=== PATIENT | female | born 2000 | race Asian ===

== ENCOUNTER 2018-05-11 20:16 | Emergency (ER) | payer BC ==
[2018-05-11 20:59] VITALS: BP 105/71
--- NOTE | 2018-05-11 22:36 | UC ---
Respiratory Complaint HPI - HPI Summary HPI Summary: PATIENT HAS HAD URI/BRONCHITIS SYMPTOMS INCLUDING COUGH AND CONGESTION FOR ABOUT 2 WEEKS. REPORTS HER SYMPTOMS ARE MUCH IMPROVED BUT THE COUGH HAS PERSISTED. FOR ABOUT 1 WEEK SHE HAS HAD LEFT LATERAL "LUNG PAIN". WORSE WITH DEEP BREATHS, MOVEMENT, COUGH. NO FEVER, NAUSEA/VOMITING. NO HEMOPTYSIS. NO SOB OR CP. - History of Current Complaint Chief Complaint: UCRespiratory Stated Complaint: CHEST CONGESTION Time Seen by Provider: 05/11/18 21:20 Hx Obtained From: Patient Hx Last Menstrual Period: 03/29/18 Onset/Duration: Gradual Onset, Still Present Timing: Constant Severity Initially: Moderate Severity Currently: Moderate Pain Intensity: 0 Pain Scale Used: 0-10 Numeric Character: Cough: Nonproductive Aggravating Factors: Deep Breaths, Other - COUGHING, MOVING Alleviating Factors: Nothing Associated Signs And Symptoms: Positive: URI. Negative: Dyspnea, Fever, Wheezing, Nasal Congestion - Allergies/Home Medications Allergies/Adverse Reactions: Allergies Allergy/AdvReac Type Severity Reaction Status Date / Time No Known Allergies Allergy Verified 05/11/18 20:59 Home Medications: Home Medications Guaifenesin/Pseudoephedrne HCl [Mucinex D ER Tablet] 1 each PO DAILY 05/11/18 [ History Confirmed 05/11/18] PMH/Surg Hx/FS Hx/Imm Hx Previously Healthy: Yes - Surgical History Surgical History: None - Family History Known Family History: Positive: Non-Contributory - Social History Alcohol Use: Occasionally Substance Use Type: None Smoking Status (MU): Never Smoked Tobacco Review of Systems All Other Systems Reviewed And Are Negative: Yes Constitutional: Positive: Negative Respiratory: Positive: Cough, Other - PLEURITIC PAIN Cardiovascular: Positive: Negative Gastrointestinal: Positive: Negative Physical Exam Triage Information Reviewed: Yes Appearance: Well-Appearing, No Pain Distress, Well-Nourished Vital Signs: Initial Vital Signs Temp 98.8 F 05/11/18 20:52 Pulse 81 05/11/18 20:52 Resp 16 05/11/18 20:52 BP 105/71 05/11/18 20:52 Pulse Ox 100 05/11/18 20:52 Vital Signs Reviewed: Yes Eyes: Positive: Conjunctiva Clear ENT: Positive: Hearing grossly normal, Pharynx normal, TMs normal Neck: Positive: Supple, Nontender, No Lymphadenopathy Respiratory Exam: Normal Cardiovascular Exam: Normal Abdomen Description: Positive: Soft Musculoskeletal: Positive: No Edema Neurological: Positive: Alert Psychological: Positive: Age Appropriate Behavior Skin: Negative: Rashes UC Diagnostic Evaluation - Laboratory O2 Sat by Pulse Oximetry: 100 Respiratory Course/Dx - Course Course Of Treatment: CHEST X-RAY UNREMARKABLE ON MY INITIAL INTERPRETATION. OFFICIAL RADIOLOGY READ IS PENDING. PATIENT'S DISCOMFORT IS LIKELY FROM AIRWAY IRRITATION DUE TO HER RECENT ILLNESS. HER RESPIRATORY SYMPTOMS ARE ALREADY IMPROVING SO WILL NOT TREAT WITH ANTIBIOTICS AT THIS TIME. WILL GIVE PREDNISONE TO HELP WITH COUGH AND AIRWAY INFLAMMATION. FOLLOW-UP WITH [facility] IF NEEDED. TO ER IF SYMPTOMS WORSEN. - Differential Dx/Diagnosis Provider Diagnosis: Pleuritic pain, Acute bronchitis Discharge - Sign-Out/Discharge Documenting (check all that apply): Patient Departure All imaging exams completed and their final reports reviewed: No - Discharge Plan Condition: Stable Disposition: HOME Prescriptions: predniSONE TAB* [Deltasone 20 MG TAB*] 40 mg PO DAILY #10 tab Patient Education Materials: Pleurisy (ED), Acute Bronchitis (ED) Referrals: [facility] [Provider Group] - If Needed Additional Instructions: CHEST X-RAY UNREMARKABLE ON MY INITIAL INTERPRETATION. WE WILL CALL YOU TOMORROW IF THE RADIOLOGY READ DIFFERS YOUR SYMPTOMS ARE ALREADY IMPROVING. NO INDICATION FOR ANTIBIOTICS AT THIS TIME. WILL TREAT WITH PREDNISONE TO HELP WITH COUGH AND AIRWAY INFLAMMATION. IBUPROFEN/TYLENOL NEEDED FOR DISCOMFORT. FOLLOW-UP WITH [facility] IF NEEDED. GO TO THE ER WITHOUT FAIL IF YOU DEVELOP WORSENING PAIN, SHORTNESS OF BREATH, FEVER OR ANY OTHER CONCERNING SYMPTOMS. - Billing Disposition and Condition Condition: STABLE Disposition: Home
== END 2018-05-11 22:35 | disposition home or self-care (01) ==
LOC: UCEAST 20:16
DX: J20.9 Acute bronchitis, unspecified (principal); R07.81 Pleurodynia
CPT/HCPCS: 71046; 99202; G0463

== ENCOUNTER 2019-02-23 17:08 | Emergency (ER) | payer BC ==
[2019-02-23 17:43] LABS: Influenza A Molecular NEGATIVE (Negative); Influenza B Molecular NEGATIVE (Negative)
--- NOTE | 2019-02-23 18:01 | ED ---
Influenza-Like Illness - HPI Summary HPI Summary: 18-year-old female presents with onset of general malaise, fatigue, body aches, mild nasal congestion, postnasal drip, sore throat, and a occasional nonproductive cough today. States her roommate is presently sick with similar symptoms. Denies ear pain, dysphagia, chest pain, shortness of breath, abdominal pain, nausea, vomiting, or diarrhea. - History of Current Complaint Chief Complaint: EDFluSymptoms Time Seen by Provider: 02/23/19 17:49 Hx Obtained From: Patient - Allergy/Home Medications Allergies/Adverse Reactions: Allergies Allergy/AdvReac Type Severity Reaction Status Date / Time No Known Allergies Allergy Verified 05/11/18 20:59 PMH/Surg Hx/FS Hx/Imm Hx Previously Healthy: Yes - Denies significant PMH - Surgical History Surgical History: None - Immunization History Immunizations Up to Date: Yes Infectious Disease History: No Infectious Disease History: Denies: Traveled Outside the [place] in Last 30 Days - Family History Known Family History: Positive: Non-Contributory - Social History Occupation: Student Lives: Dormitory/Roommates Alcohol Use: Occasionally Substance Use Type: Reports: None Smoking Status (MU): Never Smoked Tobacco Review of Systems Positive: Fever, Chills, Fatigue Negative: Drainage, Erythema Positive: Sore Throat, Nasal Discharge Negative: Chest Pain Positive: Cough. Negative: Shortness Of Breath Negative: Abdominal Pain, Vomiting, Diarrhea, Nausea Positive: no symptoms reported Positive: Myalgia Negative: Rash Neurological: Negative All Other Systems Reviewed And Are Negative: Yes Physical Exam - Summary Physical Exam Summary: GENERAL APPEARANCE: Well developed, well nourished, alert and cooperative, and appears to be in no acute distress. EYES: Conjunctiva clear. No drainage. EARS: External auditory canals and tympanic membranes clear, hearing grossly intact. NOSE: Mild nasal congestion. No nasal discharge. THROAT: Pharyngeal erythema. No tonsilar inflammation, swelling, exudate, or lesions. Uvula midline. NECK: Neck supple, non-tender without lymphadenopathy. CARDIAC: Normal S1 and S2. No S3, S4 or murmurs. Rhythm is regular. There is no peripheral edema, cyanosis or pallor. Extremities are warm and well perfused. Capillary refill is less than 2 seconds. Peripheral pulses intact. LUNGS: Clear to auscultation without rales, rhonchi, wheezing or diminished breath sounds. ABDOMEN: Positive bowel sounds. Soft, nondistended, nontender. No guarding or rebound. No masses or hepatosplenomegally. MUSKULOSKELETAL: ROM intact to all extremities. No joint erythema or tenderness. Normal muscular development. Normal gait. SKIN: Skin normal color, texture and turgor with no lesions or eruptions. Triage Information Reviewed: Yes Vital Signs On Initial Exam: Initial Vitals Temp Pulse Resp BP Pulse Ox 101.2 F 82 16 112/71 98 02/23/19 17:11 02/23/19 17:11 02/23/19 17:11 02/23/19 17:11 02/23/19 17:11 Vital Signs Reviewed: Yes Procedures - Sedation Patient Received Moderate/Deep Sedation with Procedure: No Diagnostics - Vital Signs Vital Signs Temp Pulse Resp BP Pulse Ox 02/23/19 17:11 101.2 F 82 16 112/71 98 - Laboratory Lab Results: Lab Results 02/23/19 Range/Units 17:20 Influenza A (Rapid) Negative (Negative) Influenza B (Rapid) Negative (Negative) Lab Statement: Any lab studies that have been ordered have been reviewed, and results considered in the medical decision making process. Flu Symptom Course/Dx - Course Course Of Treatment: 18-year-old female presents with onset of general malaise, fatigue, body aches, mild nasal congestion, postnasal drip, sore throat, and a occasional nonproductive cough today. States her roommate is presently sick with similar symptoms. Denies ear pain, dysphagia, chest pain, shortness of breath, abdominal pain, nausea, vomiting, or diarrhea. Patient elevated temperature of 101.2 F. Vital signs were stable. Patient had mild nasal congestion, pharyngeal erythema, no tonsillar swelling or exudate, no cervical lymphadenopathy, clear bilateral breath sounds, and otherwise unremarkable exam. Rapid flu test was negative. Results were reviewed with the patient. We discussed that her symptoms are likely from a viral upper respiratory infection recommending symptomatically treatment this time. Patient is to follow-up at the [facility] in 5-7 days if symptoms are not improving. Anticipatory guidance and warning symptoms were reviewed with the patient. Verbalizes understanding and agrees with plan of care. - Diagnoses Differential Diagnosis/HQI/PQRI: Positive: Bronchitis, Influenza, Pneumonia, Upper Respiratory Infection Provider Diagnoses: Viral upper respiratory infection Discharge ED - Sign-Out/Discharge Documenting (check all that apply): Patient Departure - Discharge Plan Condition: Stable Disposition: HOME Patient Education Materials: Upper Respiratory Infection (ED) Referrals: [facility] - Matti MEDRANO [Primary Care Provider] - Additional Instructions: Your history and exam are consistent with a viral upper respiratory infection. Viral infections do not respond to antibiotics and are limited to the treatment of symptoms. Viral infections typically run their course in 7-10 days. Drink plenty of fluids to avoid dehydration especially if you are running any fever. Use an over the counter decongestant such as Sudafed according to directions. Take over the counter acetaminophen (Tylenol) or ibuprofen (Advil, Motrin) according to directions as needed for pain or fever. Use salt water gargles several times a day if you have a sore throat. You may also use Chloraseptic spray or Cepacol lonzenges according to directions which contain a numbing medication and can provide some temporary relief from your sore throat. Follow up with the student in 5-7 days if symptoms persist. Seek immediate medical attention in the emergency room if you have fever greater than 100.5 F despite taking acetaminophen or ibuprofen, have chest pain , difficulty breathing, are unable to swallow, or have any worsening of symptoms. - Billing Disposition and Condition Condition: STABLE Disposition: Home
[2019-02-23] MEDS: Ibuprofen TAB* 600 MG PO ONE (18:16)
[2019-02-23 18:32] VITALS: BP 100/58
== END 2019-02-23 18:30 | disposition home or self-care (01) ==
LOC: ED 17:08
DX: J06.9 Acute upper respiratory infection, unspecified (principal); B34.9 Viral infection, unspecified
CPT/HCPCS: 99282; A9270-GY

== ENCOUNTER 2019-05-19 16:24 | Emergency (ER) | payer BC ==
[2019-05-19 16:46] LABS: Influenza A Molecular POSITIVE (Negative)
--- NOTE | 2019-05-19 17:02 | ED ---
Influenza-Like Illness - HPI Summary HPI Summary: 18 year old female presents with fever for the past 3 days. She states she's had sinus congestion and a cough. Has all over muscle aches. She's been around people who have had the flu. Has no medical conditions. Denies abdominal pain. No nausea, vomiting, or diarrhea. Denies any chest pain. She is nonsmoker. She has been taking Advil for her fever. - History of Current Complaint Chief Complaint: EDFluSymptoms Time Seen by Provider: 05/19/19 16:55 - Allergy/Home Medications Allergies/Adverse Reactions: Allergies Allergy/AdvReac Type Severity Reaction Status Date / Time No Known Allergies Allergy Verified 05/19/19 16:30 PMH/Surg Hx/FS Hx/Imm Hx Endocrine/Hematology History: Denies: Hx Anticoagulant Therapy Respiratory History: Denies: Hx Asthma Infectious Disease History: No Infectious Disease History: Denies: Traveled Outside the [place] in Last 30 Days - Family History Known Family History: Positive: Non-Contributory - Social History Alcohol Use: Occasionally Substance Use Type: Reports: None Smoking Status (MU): Never Smoked Tobacco Review of Systems Positive: Fever, Chills, Fatigue Positive: Nasal Discharge Negative: Chest Pain Positive: Cough. Negative: Shortness Of Breath Negative: Abdominal Pain, Vomiting, Diarrhea, Nausea All Other Systems Reviewed And Are Negative: Yes Physical Exam Triage Information Reviewed: Yes Vital Signs On Initial Exam: Initial Vitals Temp Pulse Resp BP Pulse Ox 98.4 F 94 18 117/73 96 05/19/19 16:25 05/19/19 16:25 05/19/19 16:25 05/19/19 16:25 05/19/19 16:25 Vital Signs Reviewed: Yes Appearance: Positive: Well-Appearing Skin: Positive: Warm, Dry Head/Face: Positive: Normal Head/Face Inspection Eyes: Positive: Normal, EOMI, NIKOLAS, Conjunctiva Clear ENT: Positive: Pharynx normal, TMs normal Neck: Positive: Supple, Nontender, No Lymphadenopathy. Negative: Nuchal Rigidity Respiratory/Lung Sounds: Positive: Clear to Auscultation, Breath Sounds Present Cardiovascular: Positive: Normal, RRR Abdomen Description: Positive: Nontender, Soft Bowel Sounds: Positive: Present Musculoskeletal: Positive: Normal Neurological: Positive: Normal Psychiatric: Positive: Normal Procedures - Sedation Patient Received Moderate/Deep Sedation with Procedure: No Diagnostics - Vital Signs Vital Signs Temp Pulse Resp BP Pulse Ox 05/19/19 16:25 98.4 F 94 18 117/73 96 - Laboratory Lab Results: Lab Results 05/19/19 Range/Units 16:30 Influenza A (Rapid) Positive H (Negative) Influenza B (Rapid) Not Reportable Lab Statement: Any lab studies that have been ordered have been reviewed, and results considered in the medical decision making process. Flu Symptom Course/Dx - Course Course Of Treatment: 18 year old female presents with fever for the past 3 days. She states she's had sinus congestion and a cough. Has all over muscle aches. She's been around people who have had the flu. Has no medical conditions. Denies abdominal pain. No nausea, vomiting, or diarrhea. Denies any chest pain. She is nonsmoker. She has been taking Advil for her fever. On exam appears ill but nontoxic. Lungs clear auscultation. flu A positive. Out of range for Tamiflu. Told to treat supportively. Patient understand and agrees with plan. - Diagnoses Differential Diagnosis/HQI/PQRI: Positive: Influenza, Pneumonia, Upper Respiratory Infection Provider Diagnoses: Influenza Discharge ED - Sign-Out/Discharge Documenting (check all that apply): Patient Departure - Discharge Plan Condition: Good Disposition: HOME Patient Education Materials: Influenza (ED) Forms: *School Release Referrals: Matt[facility] - Matti MEDRANO [Primary Care Provider] - Additional Instructions: Take Tylenol and ibuprofen for muscle aches and fever every 6 hours Saline rinse can be used multiple times a day for nasal congestion Drink plenty of fluids [facility] days Return to ED if develop any new or worsening symptoms - Billing Disposition and Condition Condition: GOOD Disposition: Home
[2019-05-19 17:21] VITALS: BP 114/57
== END 2019-05-19 17:20 | disposition home or self-care (01) ==
LOC: ED 16:24
DX: J11.1 Influenza due to unidentified influenza virus with other respiratory manifestations (principal); R50.9 Fever, unspecified; R05 Cough
CPT/HCPCS: 99282